=== PATIENT | female | born 1975 | race African-American/Black ===

== ENCOUNTER 2017-09-28 23:37 | Emergency (ER) | payer MEDICAID ==
[~2017-09-28] VITALS: Ht 167.6 cm; Wt 80.0 kg
[~2017-09-28 23:37] MED LIST: ALBU25PO2; BACLOFEN; HYDR-4067; NORCO; TRAMADOL
[2017-09-29] MEDS ORDERED: BACITRACIN ZINC OINT UDPKT TOP ONE (00:15)
[2017-09-29] MEDS ORDERED: ACETAMINOPHEN 500MG TABLET PO ONE (00:15)
[2017-09-29 00:43] LABS: HCG SCREEN NEGATIVE
[2017-09-29 03:26] VITALS: BP 119/75
[2017-09-29] MEDS ORDERED: TETANUS, DIPHTHERIA, PERTUSSIS VAC/PF 0.5ML (>7YR OLD) IM ONE (04:00)
== END 2017-09-29 03:50 | disposition home or self-care (01) ==
LOC: ER 23:37
DX: S21.051A Open bite of right breast, initial encounter (principal); I10 Essential (primary) hypertension; J45.909 Unspecified asthma, uncomplicated; F12.10 Cannabis abuse, uncomplicated; F17.210 Nicotine dependence, cigarettes, uncomplicated; W54.0XXA Bitten by dog, initial encounter; Y93.89 Activity, other specified; Y92.89 Other specified places as the place of occurrence of the external cause; Y99.8 Other external cause status
CPT/HCPCS: 84703; 90471; 90715; 99283; X7700; Z7610

== ENCOUNTER 2017-11-04 02:36 | Emergency (ER) | payer MEDICAID ==
[~2017-11-04] VITALS: Ht 162.6 cm; Wt 63.0 kg
[2017-11-04] MEDS ORDERED: SODIUM CHLORIDE 0.9% 1,000 ML IV ONE (03:39)
[2017-11-04] MEDS ORDERED: BALANCED SALT IRRIG SOLN 15ML IO ONE (03:45)
[2017-11-04] MEDS ORDERED: GENTAMICIN 0.3% OPTH OINT 3.5GM OP ONE (03:45)
[2017-11-04] MEDS ORDERED: TETRACAINE 0.5% OPHTH DROPS 4ML OP ONE (03:45)
[2017-11-04] MEDS ORDERED: FLUORESCEIN SODIUM 1MG/STRIP OP ONE (03:45)
[2017-11-04 04:36] LABS: HCG SCREEN NEGATIVE
[2017-11-04 05:44] LABS: *AMPHETAMINES SCREEN URINE NEGATIVE (NEGATIVE); *BARBITURATES SCREEN URINE NEGATIVE (NEGATIVE); *BENZODIAZEPINES SCREEN URINE NEGATIVE (NEGATIVE); *COCAINE SCREEN URINE NEGATIVE (NEGATIVE); METHADONE URINE SCREEN NEGATIVE (NEGATIVE); OPIATES URINE SCREEN NEGATIVE (NEGATIVE); PHENCYCLIDINE URINE SCREEN NEGATIVE (NEGATIVE)
[2017-11-04 06:29] VITALS: BP 106/61
[2017-11-04 08:29] LABS: CANNABINOID URINE SCREEN PRESUMTIVE POSITIVE (NEGATIVE)
== END 2017-11-04 06:31 | disposition home or self-care (01) ==
LOC: ER 02:36
DX: H10.213 Acute toxic conjunctivitis, bilateral (principal); I10 Essential (primary) hypertension; J45.909 Unspecified asthma, uncomplicated; F43.10 Post-traumatic stress disorder, unspecified; F17.200 Nicotine dependence, unspecified, uncomplicated; F10.20 Alcohol dependence, uncomplicated; F12.10 Cannabis abuse, uncomplicated; D57.1 Sickle-cell disease without crisis
CPT/HCPCS: 36415; 80305; 84703; 96360; 99284; G0482; J7030; J7040

== ENCOUNTER 2018-08-13 20:54 | Emergency (ER) | payer MEDICAID ==
[~2018-08-13] VITALS: Ht 170.2 cm; Wt 81.0 kg
[2018-08-13] MEDS ORDERED: SODIUM CHLORIDE 0.9% 1,000 ML IV ONE ×2 (22:00→22:13)
[2018-08-13] MEDS ORDERED: MORPHINE SULFATE 4 MG/ML CPJ (NOT FOR IM USE) IV STA (22:13)
[2018-08-13] MEDS ORDERED: ONDANSETRON HCL 4MG/2ML INJ IV STA (22:13)
[2018-08-13 23:32] LABS: HEMATOCRIT. 28.8 % (36.0-48.0); HEMOGLOBIN. 8.6 g/dL (12.0-16.0); MEAN CORPUSCULAR HEMOGLOBIN 17.6 pg (28.0-32.0); MEAN CORPUSCULAR VOLUME 59.4 fL (81.0-99.0); MEAN PLATELET VOLUME 8.3 fl (7.4-10.4); PLATELET 470 x1000/uL (130-400); RED BLOOD CELL COUNT 4.85 mill/uL (4.2-5.4); RED CELL DISTRIBUTION WIDTH 27.6 % (11.6-14.6)
[2018-08-13 23:38] LABS: CHLORIDE 107 mEq/L (98-107)
[2018-08-13 23:45] LABS: HCG SCREEN NEGATIVE
[2018-08-13 23:53] LABS: *COCAINE SCREEN URINE NEGATIVE (NEGATIVE); METHADONE URINE SCREEN NEGATIVE (NEGATIVE); OPIATES URINE SCREEN NEGATIVE (NEGATIVE); PHENCYCLIDINE URINE SCREEN NEGATIVE (NEGATIVE)
[2018-08-13 23:54] LABS: *AMPHETAMINES SCREEN URINE NEGATIVE (NEGATIVE); *BARBITURATES SCREEN URINE NEGATIVE (NEGATIVE); *BENZODIAZEPINES SCREEN URINE NEGATIVE (NEGATIVE)
[2018-08-14 00:03] LABS: ETHANOL BLOOD 376 mg/dL
[2018-08-14 00:08] LABS: CANNABINOID URINE SCREEN PRESUMTIVE POSITIVE (NEGATIVE)
[2018-08-14 01:46] LABS: ATYPICAL LYMPHOCYTES 1; NUCLEATED RED BLOOD CELLS 1 /100 WBC; PLATELET ESTIMATE SLIGHTLY INCREASED
[2018-08-14 05:50] VITALS: BP 118/79
== END 2018-08-14 06:10 | disposition home or self-care (01) ==
LOC: ER 20:54
DX: F10.229 Alcohol dependence with intoxication, unspecified (principal); M79.1 Myalgia; I51.7 Cardiomegaly; D57.00 Hb-SS disease with crisis, unspecified; I10 Essential (primary) hypertension; E11.9 Type 2 diabetes mellitus without complications; J45.909 Unspecified asthma, uncomplicated; F12.10 Cannabis abuse, uncomplicated; Z79.899 Other long term (current) drug therapy; Y90.8 Blood alcohol level of 240 mg/100 ml or more
CPT/HCPCS: 36415; 71045; 80048; 80305; 81025; 84703; 85025; 85044; 93005; 96361; 96374; 96375; 99285; G0482; J2270; J2405; J7030; Z7610

== ENCOUNTER 2018-12-17 02:45 | Inpatient (IN) | payer MEDICAID ==
[~2018-12-17] VITALS: Ht 162.6 cm; Wt 75.7 kg
[2018-12-17] MEDS ORDERED: MORPHINE SULFATE 4 MG/ML CPJ (NOT FOR IM USE) IV STA (09:18)
[2018-12-17] MEDS ORDERED: ONDANSETRON HCL 4MG/2ML INJ IV STA (09:18)
[2018-12-17] MEDS ORDERED: SODIUM CHLORIDE 0.9% 1,000 ML IV ONE (09:18)
[2018-12-17 10:23] LABS: HEMATOCRIT. 25.4 % (36.0-48.0); HEMOGLOBIN. 7.2 g/dL (12.0-16.0); MEAN CORPUSCULAR HEMOGLOBIN 16.5 pg (28.0-32.0); MEAN CORPUSCULAR VOLUME 58.6 fL (81.0-99.0); MEAN PLATELET VOLUME 8.1 fl (7.4-10.4); PLATELET 233 x1000/uL (130-400); RED BLOOD CELL COUNT 4.34 mill/uL (4.2-5.4); RED CELL DISTRIBUTION WIDTH 32.1 % (11.6-14.6)
[2018-12-17 10:28] LABS: CHLORIDE 107 mEq/L (98-107)
[2018-12-17 10:33] LABS: ETHANOL BLOOD 223 mg/dL
[2018-12-17 11:33] LABS: PLATELET ESTIMATE NORMAL
[2018-12-17 12:12] LABS: HCG SCREEN NEGATIVE
[2018-12-17 13:18] LABS: CLARITY URINE CLEAR (CLEAR); COLOR URINE YELLOW (YELLOW); KETONES URINE NEGATIVE (NEGATIVE); LEUKOCYTE ESTERASE URINE NEGATIVE (NEGATIVE); NITRITE URINE POSITIVE (NEGATIVE); OCCULT BLOOD URINE NEGATIVE (NEGATIVE); PH URINE 5.5 (4.5-8.0); PROTEIN URINE NEGATIVE (NEGATIVE); SPECIFIC GRAVITY URINE 1.055 (1.005-1.030); UROBILINOGEN URINE 0.2 E.U./dL (0.2-1.0)
[2018-12-17 13:42] LABS: *AMPHETAMINES SCREEN URINE NEGATIVE (NEGATIVE); *BARBITURATES SCREEN URINE NEGATIVE (NEGATIVE); *BENZODIAZEPINES SCREEN URINE NEGATIVE (NEGATIVE); *COCAINE SCREEN URINE NEGATIVE (NEGATIVE); METHADONE URINE SCREEN NEGATIVE (NEGATIVE)
[2018-12-17 13:43] LABS: PHENCYCLIDINE URINE SCREEN NEGATIVE (NEGATIVE)
[2018-12-17 13:45] LABS: CANNABINOID URINE SCREEN PRESUMTIVE POSITIVE (NEGATIVE); OPIATES URINE SCREEN PRESUMTIVE POSITIVE (NEGATIVE)
[2018-12-17] MEDS ORDERED: MORPHINE SULFATE 4 MG/ML CPJ (NOT FOR IM USE) IV ONE (14:00)
[2018-12-17] MEDS ORDERED: CEFTRIAXONE SODIUM 1 G/VIAL IV ONE (14:00)
[2018-12-17] MEDS ORDERED: ONDANSETRON HCL 4MG/2ML INJ IV ONE (14:00)
[2018-12-17] MEDS ORDERED: IOHEXOL-300 100 ML BOTTLE ONE (14:03)
[2018-12-17] MEDS ORDERED: CEFTRIAXONE 1GM PREMIX 50ML IV ONE (15:00)
[2018-12-17] MEDS ORDERED: ACETAMINOPHEN 325MG TABLET PO PRN (16:00)
[2018-12-17] MEDS ORDERED: MAGNESIUM/ALUMINUM HYDROXIDE/SIMETHICONE 30ML UDC PO PRN (16:00)
[2018-12-17] MEDS ORDERED: IPRATROPIUM/ALBUTEROL 0.5-3(2.5)MG/3ML NEB INH PRN (16:00)
[2018-12-17] MEDS ORDERED: DOCUSATE SODIUM 100MG CAPSULE PO PRN (16:00)
[2018-12-17] MEDS ORDERED: CLONIDINE 0.1MG TABLET PO PRN (16:00)
[2018-12-17] MEDS ORDERED: GUAIFENESIN 200MG/10ML SUGAR FREE UDC PO PRN (16:00)
[2018-12-17 17:11] LABS: PHOSPHORUS 4.2 mg/dL (2.5-4.9)
[2018-12-17] MEDS: NICOTINE 7MG PATCH TD SCH (18:08)
[2018-12-17] MEDS: ENOXAPARIN 40MG/0.4ML SYR SUBCUT SCH (18:08)
[2018-12-17] MEDS: SODIUM CHLORIDE 0.9% 1,000 ML IV SCH (18:08)
[2018-12-17 19:08] VITALS: BP 122/68
[2018-12-17 20:00] VITALS: BP 143/72
[2018-12-17] MEDS: DIPHENHYDRAMINE 50MG/ML VIAL IV PRN (21:04)
[2018-12-17] MEDS: HYDROMORPHONE HCL/PF 2MG/ML CPJ IV PRN (21:12)
[2018-12-17 22:15] LABS: CREATINE KINASE 237 IU/L (26-192)
[2018-12-17] MEDS: LORAZEPAM 2MG/ML CPJ IV PRN (23:55)
[2018-12-18] VITALS: BP 131/76
[2018-12-18] MEDS: DIPHENHYDRAMINE 50MG/ML VIAL IV PRN ×5 (01:00→20:56)
[2018-12-18 04:00] VITALS: BP 133/67
[2018-12-18] MEDS: HYDROMORPHONE HCL/PF 2MG/ML CPJ IV PRN ×4 (05:37→21:03)
[2018-12-18 06:59] LABS: HEMATOCRIT. 25.3 % (36.0-48.0); HEMOGLOBIN. 7.1 g/dL (12.0-16.0); MEAN CORPUSCULAR HEMOGLOBIN 16.5 pg (28.0-32.0); MEAN CORPUSCULAR VOLUME 59.3 fL (81.0-99.0); MEAN PLATELET VOLUME 8.3 fl (7.4-10.4); PLATELET 207 x1000/uL (130-400); RED BLOOD CELL COUNT 4.27 mill/uL (4.2-5.4); RED CELL DISTRIBUTION WIDTH 31.8 % (11.6-14.6)
[2018-12-18 08:00] VITALS: BP 121/68
[2018-12-18] MEDS ORDERED: ONDANSETRON HCL 4MG/2ML INJ IV PRN (08:15)
[2018-12-18] MEDS: FOLIC ACID 1MG TABLET PO SCH (09:10)
[2018-12-18] MEDS: FOLIC ACID/VITAMIN B COMP W-C TABLET PO SCH (09:11)
[2018-12-18] MEDS: NICOTINE 7MG PATCH TD SCH (09:12)
[2018-12-18] MEDS: CHLORDIAZEPOXIDE 25MG CAPSULE PO SCH ×2 (10:10→20:52)
[2018-12-18 12:00] VITALS: BP 127/58
[2018-12-18 12:56] LABS: CHLORIDE 100 mEq/L (98-107)
[2018-12-18 13:07] LABS: CREATINE KINASE 203 IU/L (26-192); LDL CHOLESTEROL 123 mg/dL (5-100)
[2018-12-18 13:08] LABS: HDL CHOLESTEROL 72 mg/dL (40-59)
[2018-12-18 15:57] LABS: CLARITY URINE CLEAR (CLEAR); COLOR URINE YELLOW (YELLOW); KETONES URINE NEGATIVE (NEGATIVE); LEUKOCYTE ESTERASE URINE 2+ (NEGATIVE); NITRITE URINE NEGATIVE (NEGATIVE); OCCULT BLOOD URINE 2+ (NEGATIVE); PH URINE 7.5 (4.5-8.0); PROTEIN URINE NEGATIVE (NEGATIVE); SPECIFIC GRAVITY URINE 1.009 (1.005-1.030); UROBILINOGEN URINE 0.2 E.U./dL (0.2-1.0)
[2018-12-18] MEDS: ENOXAPARIN 40MG/0.4ML SYR SUBCUT SCH (17:17)
[2018-12-18] MEDS: SODIUM CHLORIDE 0.9% 1,000 ML IV SCH ×2 (17:18→20:52)
[2018-12-18] MEDS ORDERED: CEFTRIAXONE 1 G PREMIX 50 ML IV SCH (18:30)
[2018-12-18 19:46] LABS: NUCLEATED RED BLOOD CELLS 2 /100 WBC; PLATELET ESTIMATE NORMAL
[2018-12-18 20:00] VITALS: BP 151/71
[2018-12-19] VITALS: BP 140/67
[2018-12-19] MEDS: HYDROMORPHONE HCL/PF 2MG/ML CPJ IV PRN ×2 (00:39→05:44)
[2018-12-19] MEDS: DIPHENHYDRAMINE 50MG/ML VIAL IV PRN ×3 (00:45→09:57)
[2018-12-19 04:00] VITALS: BP 141/73
[2018-12-19] MEDS: CHLORDIAZEPOXIDE 25MG CAPSULE PO SCH ×2 (05:41→12:42)
[2018-12-19] MEDS: SODIUM CHLORIDE 0.9% 1,000 ML IV SCH (05:50)
[2018-12-19 06:40] LABS: CHLORIDE 102 mEq/L (98-107)
[2018-12-19 08:00] VITALS: BP 130/81
[2018-12-19] MEDS: LORAZEPAM 2MG/ML CPJ IV PRN (08:39)
[2018-12-19] MEDS: FOLIC ACID/VITAMIN B COMP W-C TABLET PO SCH (08:40)
[2018-12-19] MEDS: NICOTINE 7MG PATCH TD SCH (08:40)
[2018-12-19] MEDS: FOLIC ACID 1MG TABLET PO SCH (08:40)
[2018-12-19 09:03] LABS: MEAN CORPUSCULAR HEMOGLOBIN 16.3 pg (28.0-32.0); MEAN CORPUSCULAR VOLUME 58.6 fL (81.0-99.0); RED BLOOD CELL COUNT 4.23 mill/uL (4.2-5.4); RED CELL DISTRIBUTION WIDTH 31.7 % (11.6-14.6)
[2018-12-19 09:05] LABS: HEMOGLOBIN. 6.9 g/dL (12.0-16.0)
[2018-12-19 09:06] LABS: HEMATOCRIT. 24.8 % (36.0-48.0)
[2018-12-19] MEDS ORDERED: HYDROMORPHONE HCL/PF 2MG/ML CPJ IV SCH ×2 (09:15→10:16)
[2018-12-19] MEDS ORDERED: ALBU18HF2 IH (11:24)
[2018-12-19] MEDS ORDERED: LORA-249 MT (11:24)
[2018-12-19] MEDS ORDERED: L25 PO (11:24)
[2018-12-19] MEDS ORDERED: NEPVIT PO (11:24)
[2018-12-19] MEDS ORDERED: NITR-87 MT (11:24)
[2018-12-19] MEDS ORDERED: HYDR-3281 MT (11:24)
[2018-12-19 12:00] VITALS: BP 131/61
[2018-12-19 14:02] LABS: NUCLEATED RED BLOOD CELLS 1 /100 WBC
[2018-12-19 14:03] LABS: PLATELET ESTIMATE NORMAL
[2018-12-19 14:04] LABS: MEAN PLATELET VOLUME 8.4 fl (7.4-10.4); PLATELET 168 x1000/uL (130-400)
== END 2018-12-19 14:45 | disposition left against medical advice (07) | DRG 662 ==
LOC: ER 02:45 → 6EST 13:54 → EDBEDREQ 13:57 → ENRESERV 15:24
PROVIDERS: ADMIT Internal Medicine; ATTEND Internal Medicine
DX: D57.00 Hb-SS disease with crisis, unspecified (principal); K76.0 Fatty (change of) liver, not elsewhere classified; R16.0 Hepatomegaly, not elsewhere classified; N39.0 Urinary tract infection, site not specified; E03.9 Hypothyroidism, unspecified; F12.90 Cannabis use, unspecified, uncomplicated; F43.10 Post-traumatic stress disorder, unspecified; G89.4 Chronic pain syndrome; K57.90 Diverticulosis of intestine, part unspecified, without perforation or abscess without bleeding; F17.210 Nicotine dependence, cigarettes, uncomplicated; I10 Essential (primary) hypertension; J45.909 Unspecified asthma, uncomplicated; W01.0XXA Fall on same level from slipping, tripping and stumbling without subsequent striking against object, initial encounter; S62.91XA Unspecified fracture of right hand, initial encounter for closed fracture; F10.239 Alcohol dependence with withdrawal, unspecified; Z91.19 Patient's noncompliance with other medical treatment and regimen
CPT/HCPCS: 36415; 73130; 74177; 76700; 80048; 80061; 80305; 82550; 83735; 84100; 84439; 84443; 84481; 84703; 85044; 93970; 96361; 96374; 96375; 99285; C1893; G0482; J0696; J1170; J1200; J1650; J2060; J2270; J2405; J7030; J7042; Q9967

== ENCOUNTER 2018-12-25 20:09 | Emergency (ER) | payer MEDICAID ==
[~2018-12-25] VITALS: Ht 167.6 cm; Wt 68.0 kg
[~2018-12-25 20:09] MED LIST changes: +ALBU18HF2 IH; +HYDR-3281 MT; +L25 PO; +LORA-249 MT; +NEPVIT PO; +NITR-87 MT
[2018-12-25] MEDS ORDERED: SODIUM CHLORIDE 0.9% 1,000 ML IV ONE (21:41)
[2018-12-25 21:48] LABS: PROTHROMBIN TIME 9.9 sec (9.1-11.1)
[2018-12-25 21:49] LABS: HEMATOCRIT. 25.6 % (36.0-48.0); HEMOGLOBIN. 7.1 g/dL (12.0-16.0); MEAN CORPUSCULAR HEMOGLOBIN 16.6 pg (28.0-32.0); MEAN CORPUSCULAR VOLUME 60.3 fL (81.0-99.0); RED BLOOD CELL COUNT 4.25 mill/uL (4.2-5.4); RED CELL DISTRIBUTION WIDTH 33.6 % (11.6-14.6)
[2018-12-25 21:54] LABS: HCG SCREEN NEGATIVE
[2018-12-25 21:56] LABS: CHLORIDE 111 mEq/L (98-107)
[2018-12-25 22:00] LABS: ETHANOL BLOOD 263 mg/dL
[2018-12-25 22:20] LABS: MEAN PLATELET VOLUME 8.4 fl (7.4-10.4); PLATELET 122 x1000/uL (130-400)
[2018-12-25 22:22] LABS: PLATELET ESTIMATE DECREASED
[2018-12-25 23:24] LABS: CLARITY URINE CLEAR (CLEAR); COLOR URINE YELLOW (YELLOW); KETONES URINE NEGATIVE (NEGATIVE); LEUKOCYTE ESTERASE URINE NEGATIVE (NEGATIVE); NITRITE URINE NEGATIVE (NEGATIVE); OCCULT BLOOD URINE NEGATIVE (NEGATIVE); PH URINE 5.5 (4.5-8.0); PROTEIN URINE NEGATIVE (NEGATIVE); SPECIFIC GRAVITY URINE 1.006 (1.005-1.030); UROBILINOGEN URINE 0.2 E.U./dL (0.2-1.0)
[2018-12-26] MEDS ORDERED: IOHEXOL-300 100 ML BOTTLE ONE (00:12)
[2018-12-26] MEDS ORDERED: IBUPROFEN 200MG TABLET PO ONE (01:45)
[2018-12-26 02:30] VITALS: BP 113/59
== END 2018-12-26 02:30 | disposition home or self-care (01) ==
LOC: ER 20:09
DX: M79.10 Myalgia, unspecified site (principal); M79.662 Pain in left lower leg; G93.40 Encephalopathy, unspecified; F10.129 Alcohol abuse with intoxication, unspecified; Y90.8 Blood alcohol level of 240 mg/100 ml or more; D57.1 Sickle-cell disease without crisis; J45.909 Unspecified asthma, uncomplicated; I10 Essential (primary) hypertension; E11.9 Type 2 diabetes mellitus without complications; F17.200 Nicotine dependence, unspecified, uncomplicated; V03.90XA Pedestrian on foot injured in collision with car, pick-up truck or van, unspecified whether traffic or nontraffic accident, initial encounter; Y93.89 Activity, other specified; Y92.9 Unspecified place or not applicable; Z88.6 Allergy status to analgesic agent; Z88.5 Allergy status to narcotic agent
CPT/HCPCS: 36415; 70450; 71260; 72125; 74177; 80053; 81003; 81025; 83690; 84703; 85025; 85610; 87186; 99284; J7030; Q9967

== ENCOUNTER 2019-01-30 23:10 | Emergency (ER) | payer MEDICAID ==
[~2019-01-30] VITALS: Ht 165.1 cm; Wt 100.0 kg
[2019-01-31] MEDS ORDERED: ONDANSETRON 4MG ODT PO STA (03:03)
[2019-01-31 03:26] LABS: CHLORIDE 114 mEq/L (98-107)
[2019-01-31 03:27] LABS: BASOPHILS % 1.6 % (0.0-2.0); EOSINOPHILS % 1.5 % (0.0-5.0); HEMATOCRIT. 29.1 % (36.0-48.0); HEMOGLOBIN. 8.4 g/dL (12.0-16.0); LYMPHOCYTES % 33.3 % (20.0-50.0); MEAN CORPUSCULAR HEMOGLOBIN 19.7 pg (28.0-32.0); MEAN CORPUSCULAR VOLUME 68.1 fL (81.0-99.0); MEAN PLATELET VOLUME 8.2 fl (7.4-10.4); MONOCYTES % 13.9 % (2.0-8.0); NEUTROPHILS % 49.7 % (40.0-76.0); PLATELET 472 x1000/uL (130-400); RED BLOOD CELL COUNT 4.26 mill/uL (4.2-5.4); RED CELL DISTRIBUTION WIDTH 39.4 % (11.6-14.6)
[2019-01-31 03:30] LABS: ETHANOL BLOOD 231 mg/dL
[2019-01-31] MEDS ORDERED: ACETAMINOPHEN 500MG TABLET PO ONE (03:30)
[2019-01-31 04:31] LABS: PLATELET ESTIMATE SLIGHTLY INCREASED
[2019-01-31] MEDS ORDERED: POTASSIUM CHLORIDE 20MEQ TABLET SR PO ONE (05:45)
[2019-01-31 08:10] VITALS: BP 120/70
[2019-01-31] MEDS: ONDANSETRON 4MG ODT PO NR ×2 (08:12→08:29)
[2019-01-31] MEDS ORDERED: ACETAMINOPHEN 500MG TABLET PO NR (08:15)
== END 2019-01-31 09:04 | disposition home or self-care (01) ==
LOC: ER 23:10
DX: F10.129 Alcohol abuse with intoxication, unspecified (principal); Y90.7 Blood alcohol level of 200-239 mg/100 ml; D64.9 Anemia, unspecified; D57.1 Sickle-cell disease without crisis; I10 Essential (primary) hypertension; J45.909 Unspecified asthma, uncomplicated; E11.9 Type 2 diabetes mellitus without complications; Z88.5 Allergy status to narcotic agent; Z88.6 Allergy status to analgesic agent
CPT/HCPCS: 36415; 80053; 80320; 83690; 85025; 99284; Q0162; Z7610; G0480

== ENCOUNTER 2019-02-27 01:10 | Emergency (ER) | payer MEDICAID ==
[~2019-02-27] VITALS: Ht 167.6 cm; Wt 78.0 kg
[2019-02-27] MEDS ORDERED: SODIUM CHLORIDE 0.9% 1,000 ML IV ONE (02:49)
[2019-02-27] MEDS ORDERED: KETOROLAC 30MG/ML VIAL IV STA (02:49)
[2019-02-27 03:27] LABS: HEMATOCRIT. 30.4 % (36.0-48.0); HEMOGLOBIN. 9.6 g/dL (12.0-16.0); MEAN PLATELET VOLUME 8.2 fl (7.4-10.4); PLATELET 356 x1000/uL (130-400); RED BLOOD CELL COUNT 4.35 mill/uL (4.2-5.4); RED CELL DISTRIBUTION WIDTH 42.2 % (11.6-14.6)
[2019-02-27 03:29] LABS: CHLORIDE 109 mEq/L (98-107)
[2019-02-27 03:30] LABS: HCG SCREEN NEGATIVE
[2019-02-27 03:33] LABS: ETHANOL BLOOD 263 mg/dL
[2019-02-27 05:11] LABS: PLATELET ESTIMATE NORMAL
[2019-02-27 06:45] VITALS: BP 114/62
== END 2019-02-27 08:51 | disposition home or self-care (01) ==
LOC: ER 01:10
DX: M79.10 Myalgia, unspecified site (principal); F10.129 Alcohol abuse with intoxication, unspecified; Y90.8 Blood alcohol level of 240 mg/100 ml or more; M19.90 Unspecified osteoarthritis, unspecified site; J45.909 Unspecified asthma, uncomplicated; E11.9 Type 2 diabetes mellitus without complications; I10 Essential (primary) hypertension; D57.1 Sickle-cell disease without crisis
CPT/HCPCS: 36415; 71111; 73562; 80053; 80320; 83615; 84703; 85025; 85044; 96374; 99284; J1885; J7030; Z7610; G0480

== ENCOUNTER 2019-04-17 00:58 | Emergency (ER) | payer MEDICAID ==
[~2019-04-17] VITALS: Ht 160 cm; Wt 69.0 kg
[2019-04-17 08:12] VITALS: BP 108/66
[2019-04-17] MEDS ORDERED: ACETAMINOPHEN 325MG TABLET PO ONE (08:15)
== END 2019-04-17 09:49 | disposition home or self-care (01) ==
LOC: ER 00:58
DX: F10.129 Alcohol abuse with intoxication, unspecified (principal); J45.909 Unspecified asthma, uncomplicated; E11.9 Type 2 diabetes mellitus without complications; I10 Essential (primary) hypertension; F12.10 Cannabis abuse, uncomplicated; F17.200 Nicotine dependence, unspecified, uncomplicated; D57.1 Sickle-cell disease without crisis; Z88.6 Allergy status to analgesic agent; Z88.5 Allergy status to narcotic agent; Z79.899 Other long term (current) drug therapy; Y90.9 Presence of alcohol in blood, level not specified
CPT/HCPCS: 99283

== ENCOUNTER 2019-06-13 23:17 | Inpatient (IN) | payer MEDICAID ==
[~2019-06-13] VITALS: Ht 162.6 cm; Wt 81.6 kg
[2019-06-14 00:13] LABS: HEMATOCRIT 24.2 % (36.0-48.0); HEMOGLOBIN 7.1 g/dL (12.0-16.0); MEAN CORPUSCULAR HEMOGLOBIN 18.9 pg (28.0-32.0); MEAN CORPUSCULAR VOLUME 64.2 fL (81.0-99.0); PLATELET 190 x1000/uL (130-400); RED BLOOD CELL COUNT 3.77 mill/uL (4.2-5.4); RED CELL DISTRIBUTION WIDTH 27.5 % (11.6-14.6)
[2019-06-14] MEDS ORDERED: ACETAMINOPHEN 500MG TABLET PO ONE (00:15)
[2019-06-14 00:18] LABS: CHLORIDE 108 mEq/L (98-107)
[2019-06-14] MEDS ORDERED: OCTREOTIDE 1,000 MCG in SODIUM CHLORIDE 0.9% 100 ML IV ONE (01:30)
[2019-06-14] MEDS ORDERED: FAMOTIDINE 20MG/2ML VIAL IV NR (02:00)
[2019-06-14] MEDS ORDERED: OCTREOTIDE 1,000 MCG in SODIUM CHLORIDE 0.9% 100 ML IV NR (02:30)
[2019-06-14 04:00] VITALS: BP 130/70
[2019-06-14 05:15] VITALS: BP 130/70
[2019-06-14 08:00] VITALS: BP 129/65
[2019-06-14] MEDS: DIPHENHYDRAMINE 50MG/ML VIAL IV PRN ×3 (08:31→22:02)
[2019-06-14] MEDS: HYDROMORPHONE HCL/PF 2MG/ML CPJ IV PRN ×3 (08:36→22:21)
[2019-06-14] MEDS ORDERED: IPRATROPIUM/ALBUTEROL 0.5-3(2.5)MG/3ML NEB INH PRN (09:00)
[2019-06-14] MEDS ORDERED: MAGNESIUM/ALUMINUM HYDROXIDE/SIMETHICONE 30ML UDC PO PRN (09:00)
[2019-06-14] MEDS ORDERED: CLONIDINE 0.1MG TABLET PO PRN (09:00)
[2019-06-14] MEDS ORDERED: RACEPINEPHRINE 2.25% 0.5ML NEB VIAL HHN PRN (13:00)
[2019-06-14] MEDS ORDERED: DIPHENHYDRAMINE 25MG CAPSULE PO PRN (13:00)
[2019-06-14] MEDS: CHLORDIAZEPOXIDE 5 MG CAPSULE PO SCH ×2 (13:45→21:07)
[2019-06-14] MEDS: NICOTINE 21MG PATCH TD SCH (13:45)
[2019-06-14] MEDS: FOLIC ACID 1MG TABLET PO SCH (13:45)
[2019-06-14] MEDS: THIAMINE HCL 100MG TABLET PO SCH (13:45)
[2019-06-14] MEDS: MULTIVITAMINS,THER W-MINERALS TABLET PO SCH (13:45)
[2019-06-14] MEDS: ACETAMINOPHEN 325MG TABLET PO PRN (13:46)
[2019-06-14 15:07] VITALS: BP 143/77
[2019-06-14 16:21] LABS: CLARITY URINE CLOUDY (CLEAR); COLOR URINE ORANGE (YELLOW); KETONES URINE NEGATIVE (NEGATIVE); LEUKOCYTE ESTERASE URINE 1+ (NEGATIVE); NITRITE URINE POSITIVE (NEGATIVE); OCCULT BLOOD URINE 3+ (NEGATIVE); PH URINE 5.5 (4.5-8.0); PROTEIN URINE NEGATIVE (NEGATIVE); SPECIFIC GRAVITY URINE 1.008 (1.005-1.030); UROBILINOGEN URINE 0.2 E.U./dL (0.2-1.0)
[2019-06-14 16:34] LABS: PHOSPHORUS 3.3 mg/dL (2.5-4.9)
[2019-06-14 16:46] LABS: *AMPHETAMINES SCREEN URINE NEGATIVE (NEGATIVE); *BENZODIAZEPINES SCREEN URINE NEGATIVE (NEGATIVE); *COCAINE SCREEN URINE NEGATIVE (NEGATIVE); METHADONE URINE SCREEN NEGATIVE (NEGATIVE)
[2019-06-14 16:47] LABS: *BARBITURATES SCREEN URINE NEGATIVE (NEGATIVE); CANNABINOID URINE SCREEN NEGATIVE (NEGATIVE); PHENCYCLIDINE URINE SCREEN NEGATIVE (NEGATIVE)
[2019-06-14 16:48] LABS: OPIATES URINE SCREEN PRESUMTIVE POSITIVE (NEGATIVE)
[2019-06-14] MEDS: MONTELUKAST SODIUM 10MG TABLET PO SCH (16:59)
[2019-06-14 17:40] LABS: HEPATITIS A AB IGM NGATIVE (NEGATIVE); HEPATITIS B SURFACE ANTIGEN NEGATIVE
[2019-06-14 20:00] VITALS: BP 129/68
[2019-06-14] MEDS: PANTOPRAZOLE SODIUM 40 MG/VIAL IV SCH (21:49)
[2019-06-14] MEDS: ONDANSETRON HCL 4MG/2ML INJ IV PRN (22:01)
[2019-06-15] VITALS: BP 161/85
[2019-06-15 04:00] VITALS: BP 123/73
[2019-06-15] MEDS: CHLORDIAZEPOXIDE 5 MG CAPSULE PO SCH ×3 (05:13→22:12)
[2019-06-15] MEDS: DIPHENHYDRAMINE 50MG/ML VIAL IV PRN ×4 (05:14→23:51)
[2019-06-15] MEDS: HYDROMORPHONE HCL/PF 2MG/ML CPJ IV PRN ×4 (05:14→23:52)
[2019-06-15 08:00] VITALS: BP 144/91
[2019-06-15] MEDS: FOLIC ACID 1MG TABLET PO SCH (08:10)
[2019-06-15] MEDS: MULTIVITAMINS,THER W-MINERALS TABLET PO SCH (08:10)
[2019-06-15] MEDS: PANTOPRAZOLE SODIUM 40 MG/VIAL IV SCH ×2 (08:10→20:42)
[2019-06-15] MEDS: THIAMINE HCL 100MG TABLET PO SCH (08:10)
[2019-06-15] MEDS: ACETAMINOPHEN 325MG TABLET PO PRN ×2 (08:10→20:42)
[2019-06-15] MEDS: NICOTINE 21MG PATCH TD SCH (09:19)
[2019-06-15 09:33] LABS: HEMATOCRIT. 24.5 % (36.0-48.0); HEMOGLOBIN. 7.1 g/dL (12.0-16.0); MEAN CORPUSCULAR HEMOGLOBIN 18.6 pg (28.0-32.0); MEAN CORPUSCULAR VOLUME 64.8 fL (81.0-99.0); MEAN PLATELET VOLUME 8.3 fl (7.4-10.4); PLATELET 197 x1000/uL (130-400); RED BLOOD CELL COUNT 3.79 mill/uL (4.2-5.4); RED CELL DISTRIBUTION WIDTH 27.5 % (11.6-14.6)
[2019-06-15 09:44] LABS: CHLORIDE 103 mEq/L (98-107)
[2019-06-15 09:56] LABS: HDL CHOLESTEROL 49 mg/dL (40-59)
[2019-06-15 09:57] LABS: LDL CHOLESTEROL 110 mg/dL (5-100)
[2019-06-15 12:00] VITALS: BP 150/81
[2019-06-15] MEDS: CEFTRIAXONE 1 G PREMIX 50 ML IV SCH (13:18)
[2019-06-15 13:36] LABS: PLATELET ESTIMATE NORMAL
[2019-06-15 16:00] VITALS: BP 145/83
[2019-06-15] MEDS: MONTELUKAST SODIUM 10MG TABLET PO SCH (16:48)
[2019-06-15] MEDS: ONDANSETRON HCL 4MG/2ML INJ IV PRN (16:53)
[2019-06-15 20:00] VITALS: BP 148/83
[2019-06-16] VITALS: BP 147/78
[2019-06-16] MEDS: ACETAMINOPHEN 325MG TABLET PO PRN ×2 (02:58→08:42)
[2019-06-16 04:00] VITALS: BP 136/82
[2019-06-16] MEDS: CHLORDIAZEPOXIDE 5 MG CAPSULE PO SCH ×2 (06:33→13:29)
[2019-06-16] MEDS: DIPHENHYDRAMINE 50MG/ML VIAL IV PRN ×2 (06:33→13:29)
[2019-06-16] MEDS: HYDROMORPHONE HCL/PF 2MG/ML CPJ IV PRN ×2 (06:35→13:32)
[2019-06-16 08:00] VITALS: BP 139/82
[2019-06-16] MEDS: PANTOPRAZOLE SODIUM 40 MG/VIAL IV SCH (08:33)
[2019-06-16] MEDS: MULTIVITAMINS,THER W-MINERALS TABLET PO SCH (08:34)
[2019-06-16] MEDS: NICOTINE 21MG PATCH TD SCH (08:34)
[2019-06-16] MEDS: THIAMINE HCL 100MG TABLET PO SCH (08:34)
[2019-06-16] MEDS: FOLIC ACID 1MG TABLET PO SCH (08:34)
[2019-06-16 12:00] VITALS: BP 119/70
[2019-06-16] MEDS: CEFTRIAXONE 1 G PREMIX 50 ML IV SCH (13:30)
[2019-06-16 13:36] LABS: HEMATOCRIT. 23.7 % (36.0-48.0); HEMOGLOBIN. 7.1 g/dL (12.0-16.0); MEAN CORPUSCULAR HEMOGLOBIN 19.4 pg (28.0-32.0); MEAN CORPUSCULAR VOLUME 64.8 fL (81.0-99.0); MEAN PLATELET VOLUME 8.6 fl (7.4-10.4); PLATELET 178 x1000/uL (130-400); RED BLOOD CELL COUNT 3.66 mill/uL (4.2-5.4)
[2019-06-16 13:43] LABS: CHLORIDE 103 mEq/L (98-107)
[2019-06-16 14:26] LABS: PLATELET ESTIMATE NORMAL
[2019-06-16 14:36] VITALS: BP 119/70
[2019-06-18 04:10] LABS: HIV SCREEN 4G Non Reactive (Non Reactive)
== END 2019-06-16 15:15 | disposition home or self-care (01) | DRG 663 ==
LOC: ER 23:17 → 5WST 06-14 01:25 → EDBEDREQ 06-14 01:32 → EDBEDREQTM 06-14 01:32 → ENRESERV 06-14 03:11
PROVIDERS: ADMIT Internal Medicine; ATTEND Internal Medicine
DX: D57.1 Sickle-cell disease without crisis (principal); J96.00 Acute respiratory failure, unspecified whether with hypoxia or hypercapnia; R04.2 Hemoptysis; J45.901 Unspecified asthma with (acute) exacerbation; K21.9 Gastro-esophageal reflux disease without esophagitis; K76.0 Fatty (change of) liver, not elsewhere classified; E11.9 Type 2 diabetes mellitus without complications; N39.0 Urinary tract infection, site not specified; F10.20 Alcohol dependence, uncomplicated; K62.5 Hemorrhage of anus and rectum; K29.20 Alcoholic gastritis without bleeding; F12.10 Cannabis abuse, uncomplicated; F19.10 Other psychoactive substance abuse, uncomplicated; F17.210 Nicotine dependence, cigarettes, uncomplicated; F43.10 Post-traumatic stress disorder, unspecified; G89.29 Other chronic pain; I10 Essential (primary) hypertension; J45.909 Unspecified asthma, uncomplicated; K57.90 Diverticulosis of intestine, part unspecified, without perforation or abscess without bleeding; Y90.8 Blood alcohol level of 240 mg/100 ml or more; Z80.0 Family history of malignant neoplasm of digestive organs; Z83.3 Family history of diabetes mellitus; Z91.19 Patient's noncompliance with other medical treatment and regimen; Z88.8 Allergy status to other drugs, medicaments and biological substances
CPT/HCPCS: 36415; 80048; 80061; 80305; 80320; 83021; 83735; 84100; 84439; 84443; 85027; 85044; 85660; 86705; 86709; 86803; 86850; 86900; 87077; 87186; 87340; 87389; 93970; 94640; 96365; 96375; 97161; 97166; 99285; C1893; C9113; J0696; J1170; J1200; J2354; J2405; J3490; J7050; J7620; G0480

== ENCOUNTER 2019-07-07 01:35 | Inpatient (IN) | payer MEDICAID ==
[~2019-07-07] VITALS: Ht 160 cm; Wt 62.1 kg
[2019-07-07] VITALS (9 sets, daily range): BP systolic 139–161; BP diastolic 70–91
[~2019-07-07 01:35] MED LIST changes: -ALBU25PO2; -BACLOFEN; -HYDR-4067; -NITR-87 MT; -NORCO; -TRAMADOL
[2019-07-07] MEDS ORDERED: DIPHENHYDRAMINE 25MG CAPSULE PO ONE (02:45)
[2019-07-07] MEDS ORDERED: IBUPROFEN 800MG TABLET PO ONE (02:45)
[2019-07-07] MEDS ORDERED: ACETAMINOPHEN WITH CODEINE 300/30MG TABLET PO ONE (02:45)
[2019-07-07] MEDS ORDERED: KETOROLAC 30MG/ML VIAL IM ONE (04:30)
[2019-07-07] MEDS ORDERED: CLONIDINE 0.1MG TABLET PO PRN (08:30)
[2019-07-07] MEDS ORDERED: IPRATROPIUM/ALBUTEROL 0.5-3(2.5)MG/3ML NEB INH PRN (08:30)
[2019-07-07] MEDS ORDERED: ACETAMINOPHEN 650MG SUPP PR PRN (08:30)
[2019-07-07] MEDS ORDERED: HYDROCODONE/ACETAMINOPHEN 5/325MG TABLET PO PRN (08:30)
[2019-07-07] MEDS ORDERED: MAGNESIUM/ALUMINUM HYDROXIDE/SIMETHICONE 30ML UDC PO PRN (08:30)
[2019-07-07] MEDS ORDERED: ACETAMINOPHEN 650MG/20.3ML UDC GT PRN (08:30)
[2019-07-07] MEDS ORDERED: ACETAMINOPHEN 325MG TABLET PO PRN (08:30)
[2019-07-07] MEDS ORDERED: NA PHOS,M-B/NA PHOS,DI-BA ENEMA 118ML PR PRN (08:30)
[2019-07-07] MEDS: HYDROCODONE/ACETAMINOPHEN 10/325MG TABLET PO PRN (09:17)
[2019-07-07] MEDS: DIPHENHYDRAMINE 50MG/ML VIAL IV PRN ×3 (12:47→21:57)
[2019-07-07] MEDS: MORPHINE SULFATE 2 MG/ML CPJ (NOT FOR IM USE) IV PRN ×2 (13:41→19:51)
[2019-07-07] MEDS: SODIUM CHLORIDE 0.9% INJ 3ML FLUSH IVF SCH ×2 (14:31→22:56)
[2019-07-07] MEDS: KETOROLAC 30MG/ML VIAL IV PRN (15:47)
[2019-07-07] MEDS ORDERED: HYDRALAZINE 20MG/ML VIAL IV PRN (16:15)
[2019-07-07] MEDS ORDERED: HYDRALAZINE 10 MG in SODIUM CHLORIDE 0.9% 49.5 ML IV PRN (16:30)
[2019-07-07] MEDS: NICOTINE 7MG PATCH TD SCH (16:34)
[2019-07-07] MEDS: ONDANSETRON HCL 4MG/2ML INJ IV PRN ×2 (16:34→19:49)
[2019-07-07 17:28] LABS: HEMATOCRIT. 21.2 % (36.0-48.0); MEAN CORPUSCULAR HEMOGLOBIN 18.5 pg (28.0-32.0); MEAN CORPUSCULAR VOLUME 61.8 fL (81.0-99.0); MEAN PLATELET VOLUME 8.6 fl (7.4-10.4); PLATELET 217 x1000/uL (130-400); RED BLOOD CELL COUNT 3.44 mill/uL (4.2-5.4); RED CELL DISTRIBUTION WIDTH 29.6 % (11.6-14.6)
[2019-07-07 17:32] LABS: HEMOGLOBIN. 6.3 g/dL (12.0-16.0)
[2019-07-07 17:35] LABS: PROTHROMBIN TIME 10.5 sec (9.6-11.0)
[2019-07-07 17:44] LABS: CHLORIDE 106 mEq/L (98-107)
[2019-07-07 20:31] LABS: PLATELET ESTIMATE NORMAL
[2019-07-07 22:57] LABS: CLARITY URINE CLEAR (CLEAR); COLOR URINE YELLOW (YELLOW); KETONES URINE NEGATIVE (NEGATIVE); LEUKOCYTE ESTERASE URINE NEGATIVE (NEGATIVE); NITRITE URINE NEGATIVE (NEGATIVE); OCCULT BLOOD URINE NEGATIVE (NEGATIVE); PH URINE 6.5 (4.5-8.0); PROTEIN URINE NEGATIVE (NEGATIVE); SPECIFIC GRAVITY URINE 1.007 (1.005-1.030); UROBILINOGEN URINE 0.2 E.U./dL (0.2-1.0)
[2019-07-07 23:08] LABS: *AMPHETAMINES SCREEN URINE NEGATIVE (NEGATIVE); *BARBITURATES SCREEN URINE NEGATIVE (NEGATIVE); *COCAINE SCREEN URINE NEGATIVE (NEGATIVE); METHADONE URINE SCREEN NEGATIVE (NEGATIVE)
[2019-07-07 23:09] LABS: PHENCYCLIDINE URINE SCREEN NEGATIVE (NEGATIVE)
[2019-07-07 23:10] LABS: *BENZODIAZEPINES SCREEN URINE PRESUMTIVE POSITIVE (NEGATIVE)
[2019-07-07 23:11] LABS: CANNABINOID URINE SCREEN PRESUMTIVE POSITIVE (NEGATIVE); OPIATES URINE SCREEN PRESUMTIVE POSITIVE (NEGATIVE)
[2019-07-08] VITALS (7 sets, daily range): BP systolic 137–157; BP diastolic 74–89
[2019-07-08] MEDS: HYDROCODONE/ACETAMINOPHEN 10/325MG TABLET PO PRN ×2 (00:01→20:18)
[2019-07-08] MEDS: DIPHENHYDRAMINE 50MG/ML VIAL IV PRN ×4 (02:21→23:58)
[2019-07-08 02:25] LABS: HEMATOCRIT 25.1 % (36.0-48.0); HEMOGLOBIN 7.6 g/dL (12.0-16.0)
[2019-07-08 02:34] LABS: PROTHROMBIN TIME 10.3 sec (9.6-11.0)
[2019-07-08] MEDS: KETOROLAC 30MG/ML VIAL IV PRN ×2 (04:28→13:57)
[2019-07-08] MEDS: SODIUM CHLORIDE 0.9% INJ 3ML FLUSH IVF SCH ×2 (05:46→13:58)
[2019-07-08] MEDS: MORPHINE SULFATE 2 MG/ML CPJ (NOT FOR IM USE) IV PRN ×4 (06:49→22:34)
[2019-07-08 08:08] LABS: CHLORIDE 106 mEq/L (98-107)
[2019-07-08 08:11] LABS: HEMOGLOBIN. 7.5 g/dL (12.0-16.0); MEAN CORPUSCULAR HEMOGLOBIN 19.1 pg (28.0-32.0); MEAN CORPUSCULAR VOLUME 63.3 fL (81.0-99.0); MEAN PLATELET VOLUME 8.6 fl (7.4-10.4); PLATELET 218 x1000/uL (130-400); RED BLOOD CELL COUNT 3.95 mill/uL (4.2-5.4)
[2019-07-08 08:17] LABS: LDL CHOLESTEROL 95 mg/dL (5-100)
[2019-07-08 08:21] LABS: HDL CHOLESTEROL 45 mg/dL (40-59)
[2019-07-08] MEDS ORDERED: LIDOCAINE HCL 1% 20ML VIAL (Pyxis) INJ ONE ×2 (08:32→12:06)
[2019-07-08] MEDS: NICOTINE 7MG PATCH TD SCH (09:18)
[2019-07-08 10:45] LABS: PLATELET ESTIMATE NORMAL
[2019-07-08] MEDS ORDERED: SODIUM BICARBONATE 4% (2.4MEQ) 5ML VIAL IV ONE (12:06)
[2019-07-08] MEDS ORDERED: LORAZEPAM 2MG/ML CPJ IV NR (12:45)
[2019-07-08] MEDS: ONDANSETRON HCL 4MG/2ML INJ IV PRN (16:25)
[2019-07-08] MEDS: QUETIAPINE FUMARATE 50MG TABLET PO SCH (22:31)
[2019-07-08] MEDS: NAPROXEN 250MG TABLET PO SCH (23:28)
[2019-07-09] VITALS: BP 131/59
[2019-07-09] MEDS: MORPHINE SULFATE 2 MG/ML CPJ (NOT FOR IM USE) IV PRN ×3 (02:31→14:11)
[2019-07-09 04:00] VITALS: BP 137/62
[2019-07-09] MEDS: DIPHENHYDRAMINE 50MG/ML VIAL IV PRN ×2 (04:18→10:55)
[2019-07-09] MEDS: SODIUM CHLORIDE 0.9% INJ 3ML FLUSH IVF SCH ×3 (05:03→13:06)
[2019-07-09 08:00] VITALS: BP 134/74
[2019-07-09] MEDS: NAPROXEN 250MG TABLET PO SCH (08:24)
[2019-07-09] MEDS: QUETIAPINE FUMARATE 50MG TABLET PO SCH (08:24)
[2019-07-09] MEDS: NICOTINE 7MG PATCH TD SCH (08:33)
[2019-07-09 12:00] VITALS: BP 140/82
[2019-07-09 14:24] VITALS: BP 131/84
== END 2019-07-09 15:54 | disposition home or self-care (01) | DRG 384 ==
LOC: ER 01:35 → 6EST 05:38 → EDBEDREQ 05:43 → EDBEDREQTM 05:43 → ENRESERV 07:43 → 6EST 08:59
PROVIDERS: ADMIT Family Medicine; ATTEND Family Medicine
PROC: 0S9C3ZZ Drainage of Right Knee Joint, Percutaneous Approach (ICD-10-PCS; principal; 2019-07-08)
DX: S80.01XA Contusion of right knee, initial encounter (principal); D57.1 Sickle-cell disease without crisis; M25.461 Effusion, right knee; I10 Essential (primary) hypertension; F10.229 Alcohol dependence with intoxication, unspecified; F17.210 Nicotine dependence, cigarettes, uncomplicated; F41.9 Anxiety disorder, unspecified; E11.9 Type 2 diabetes mellitus without complications; J45.909 Unspecified asthma, uncomplicated; G89.29 Other chronic pain; F31.9 Bipolar disorder, unspecified; M17.11 Unilateral primary osteoarthritis, right knee; Z88.5 Allergy status to narcotic agent; Z79.899 Other long term (current) drug therapy; V19.9XXA Pedal cyclist (driver) (passenger) injured in unspecified traffic accident, initial encounter; Y93.I9 Activity, other involving external motion; Y92.488 Other paved roadways as the place of occurrence of the external cause; Y99.8 Other external cause status
CPT/HCPCS: 20611; 36415; 73060; 73090; 73110; 73502; 73560; 73721; 80061; 80305; 81003; 84550; 85014; 85018; 85049; 85384; 86850; 86900; 86920; 97162; 97535; 99285; J1200; J1885; J2060; J2270; J2405; J3490; J7620; L1830; P9016; Q0163

== ENCOUNTER 2019-07-18 13:57 | Emergency (ER) | payer MEDICAID ==
[~2019-07-18] VITALS: Ht 167.6 cm; Wt 86.0 kg
[2019-07-18] MEDS ORDERED: MORPHINE SULFATE 4 MG/ML CPJ (NOT FOR IM USE) IV STA (15:47)
[2019-07-18] MEDS ORDERED: KETOROLAC 30MG/ML VIAL IV STA (15:47)
[2019-07-18] MEDS ORDERED: ONDANSETRON HCL 4MG/2ML INJ IV STA (15:47)
[2019-07-18] MEDS ORDERED: SODIUM CHLORIDE 0.9% 1,000 ML IV ONE (15:47)
[2019-07-18] MEDS ORDERED: DIPHENHYDRAMINE 50MG/ML VIAL IV ONE (16:00)
[2019-07-18 16:36] LABS: HEMATOCRIT. 27.3 % (36.0-48.0); HEMOGLOBIN. 8.5 g/dL (12.0-16.0); MEAN CORPUSCULAR HEMOGLOBIN 19.4 pg (28.0-32.0); MEAN CORPUSCULAR VOLUME 62.7 fL (81.0-99.0); MEAN PLATELET VOLUME 8.5 fl (7.4-10.4); PLATELET 326 x1000/uL (130-400); RED BLOOD CELL COUNT 4.36 mill/uL (4.2-5.4); RED CELL DISTRIBUTION WIDTH 31.6 % (11.6-14.6)
[2019-07-18 16:43] LABS: CHLORIDE 111 mEq/L (98-107)
[2019-07-18 16:45] LABS: PARTIAL THROMBOPLASTIN TIME 25.9 sec (23.4-31.0); PROTHROMBIN TIME 10.3 sec (9.6-11.0)
[2019-07-18 16:46] LABS: ETHANOL BLOOD 280 mg/dL
[2019-07-18 16:47] LABS: HCG SCREEN NEGATIVE
[2019-07-18 17:09] LABS: CLARITY URINE CLEAR (CLEAR); COLOR URINE YELLOW (YELLOW); KETONES URINE NEGATIVE (NEGATIVE); LEUKOCYTE ESTERASE URINE NEGATIVE (NEGATIVE); NITRITE URINE NEGATIVE (NEGATIVE); OCCULT BLOOD URINE NEGATIVE (NEGATIVE); PROTEIN URINE NEGATIVE (NEGATIVE); SPECIFIC GRAVITY URINE 1.002 (1.005-1.030); UROBILINOGEN URINE 0.2 E.U./dL (0.2-1.0)
[2019-07-18 17:24] LABS: PLATELET ESTIMATE NORMAL
[2019-07-18 17:29] LABS: *AMPHETAMINES SCREEN URINE NEGATIVE (NEGATIVE); *BARBITURATES SCREEN URINE NEGATIVE (NEGATIVE); *BENZODIAZEPINES SCREEN URINE NEGATIVE (NEGATIVE); *COCAINE SCREEN URINE NEGATIVE (NEGATIVE); METHADONE URINE SCREEN NEGATIVE (NEGATIVE); OPIATES URINE SCREEN NEGATIVE (NEGATIVE)
[2019-07-18 17:30] LABS: CANNABINOID URINE SCREEN NEGATIVE (NEGATIVE); PHENCYCLIDINE URINE SCREEN NEGATIVE (NEGATIVE)
[2019-07-18] MEDS ORDERED: NICOTINE 21MG PATCH TD ONE (17:30)
[2019-07-18] MEDS ORDERED: ONDANSETRON HCL 4MG/2ML INJ IV ONE (19:30)
[2019-07-18] MEDS ORDERED: MORPHINE SULFATE 4 MG/ML CPJ (NOT FOR IM USE) IV ONE (19:30)
[2019-07-18 19:42] VITALS: BP 128/74
== END 2019-07-18 20:36 | disposition home or self-care (01) ==
LOC: ER 13:57 → CANBEDREQ 21:27
DX: M25.50 Pain in unspecified joint (principal); D64.9 Anemia, unspecified; D57.1 Sickle-cell disease without crisis; F10.10 Alcohol abuse, uncomplicated; Y90.8 Blood alcohol level of 240 mg/100 ml or more; J45.909 Unspecified asthma, uncomplicated; Z88.6 Allergy status to analgesic agent
CPT/HCPCS: 36415; 80053; 80305; 80320; 81003; 83690; 84484; 84703; 85025; 85610; 85730; 86850; 86900; 86901; 96374; 96375; 96376; 99283; J1200; J1885; J2270; J2405; J7030; G0480